=== PATIENT | female | born 1960 | race Caucasian/White ===

== ENCOUNTER 2019-02-09 10:37 | Inpatient (IN) ==
--- NOTE | 2019-01-11 15:45 | PAT Medication Instructions ---
Medication Instructions Date of Service January 11, 2019 Home Medications acetaminophen [Acetaminophen Extra Strength] 1,000 mg PO BID PRN aspirin [Aspirin Low Dose] 81 mg PO HS atenolol 75 mg PO BID ibuprofen 400 mg PO BID PRN rosuvastatin 5 mg PO 3XWK Continue as directed rosuvastatin 5 mg PO 3XWK ASK your surgeon for instructions ibuprofen 400 mg PO BID PRN Take morning of surgery With a small sip of water, OTHERWISE NOTHING TO EAT OR DRINK AFTER MIDNIGHT: acetaminophen [Acetaminophen Extra Strength] 1,000 mg PO BID PRN (okay to take up to 4 hours prior to surgery if needed) atenolol 75 mg PO BID Take evening before surgery acetaminophen [Acetaminophen Extra Strength] 1,000 mg PO BID PRN (if needed) aspirin [Aspirin Low Dose] 81 mg PO HS atenolol 75 mg PO BID Other Notes If you have any questions please call us at [phone] or [phone] or [phone] or [phone]
--- NOTE | 2019-01-12 11:23 | Anesthesiology Consultation ---
Date of Service January 12, 2019 Assessment & Plan (1) Encounter for pre-operative examination: - No previous anesthesia records re: intubation. Chart Review Chart Review: Patient seen in Pre Admission Testing Consults Requested medical (Dr. Joel (01/20)) Patient was seen by PCPs office on 01/24/19 for preoperative evaluation. Per note from that visit, "the patient is cleared for the planned ortho surgery". Also, "she has had no cv symptoms and no events in the past and no pre op cv testing i s indicated." Teaching & Discussion Pre-Anesthesia Teaching/Discussion Notes: Instructed NPO after midnight before surgery, except medications with 15 cc of water. Medication instructions provided according to the PAT guidelines. History Surgery Operation Date: 02/09/19 08:20 Proposed Procedures p Right Total Knee Arthroplasty - Ricky Le DO Height/Weight Height: 5 ft 8 in Weight: 107.3 kg Allergies Allergy/AdvReac Type Severity Reaction Status Date / Time morphine AdvReac Unknown INEFFECTIVE, Verified 01/11/19 13:24 AGITATION Medications Home Medications Medication Instructions Recorded Confirmed Last Taken acetaminophen [Acetaminophen Extra 1,000 mg PO BID PRN 01/11/19 01/11/19 Unknown Strength] aspirin [Aspirin Low Dose] 81 mg PO HS 01/11/19 01/11/19 Unknown atenolol 75 mg PO BID 01/11/19 01/11/19 Unknown ibuprofen 400 mg PO BID PRN 01/11/19 01/11/19 Unknown rosuvastatin 5 mg PO 3XWK 01/11/19 01/11/19 Unknown Past Medical History Medical History H/O thyroid cyst Hyperlipidemia Hypertension Osteoarthritis Exercise / Class Metabolic Activity II 4-5 Yardwork/Stairs/Walk up hill (Can do normal activities, but only for 1 hour before knee is painful. Able to climb stairs. Denies CP of SOB. ) Past Family History Family History Uncle Family history of esophageal cancer Past Surgical History Surgical History History of cardiac cath 2006 NO STENTS History of section X2 History of dilatation and curettage X2 History of hip surgery BILATERAL RESURFACING History of nasal septoplasty History of open reduction and internal fixation (ORIF) procedure LEFT FEMUR, TIBIA OR FIBULA, AND ANKLE History of thyroidectomy, subtotal Past Anesthesia History No Hx of Anesthesia Complications and No Family Hx of Anesthesia Complications History of PONV No Hx of PONV and No Hx of Motion Sickness Social History Smoking Status: Never smoker Do You Dip or Chew Tobacco: No Hx Alcohol Use: No Hx Substance Use: No substance use type: does not use Review of Systems Patient denies chest pain, shortness of breath, dyspnea on exertion, reflux, cough, wheezing, palpitations. +Joint Pain (Both knees) +Heart palpitations (very rare and last ~1 second) Physical Exam Vital Signs BP: 155/87 P: 63 R: 18 T: 98.0 SPO2: 98% on RA Constitutional + obese ENMT Thyromental Distance: > or= 3.5 Finger Breadths (4) Mallampati Class: II Neck normal visual inspection and trachea midline; neck extension not limited Respiratory normal respiratory effort Auscultation: lungs clear to auscultation bilaterally Cardiovascular Rate/Rhythm: regular rate and regular rhythm Heart Sounds: no murmur Vessels: no carotid bruit Neurologic moves all extremities Psychiatric Orientation: alert and oriented x 3 Testing Laboratory Results 01/12/19 11:34 01/12/19 11:34 PT 10.0 Seconds (9.0-12.0) 01/12/19 11:34 INR 1.0 (0.9-1.1) 01/12/19 11:34 APTT 29.3 Seconds (21.0-31.0) 01/12/19 11:34 Hemoglobin A1c 5.6 % (4.5-5.6) 01/12/19 11:34 Urine Color Yellow 01/12/19 Unknown Urine Appearance Clear (Clear) 01/12/19 Unknown Urine pH 6.0 (4.5-7.5) 01/12/19 Unknown Ur Specific [place] 1.019 (1.000-1.030) 01/12/19 Unknown Urine Protein Negative (Negative) 01/12/19 Unknown Urine Glucose (UA) Negative (Negative) 01/12/19 Unknown Urine Ketones Negative (Negative) 01/12/19 Unknown Urine Nitrite Negative (Negative) 01/12/19 Unknown Ur Leukocyte Esterase Negative (Negative) 01/12/19 Unknown Blood Type O Positive 01/12/19 11:34 Antibody Screen NEGATIVE 01/12/19 11:34 01/12/19 Unknown Urine Culture - Final Urine,Clean Catch More than three types of organisms present, all low counts mixed probable skin yoni. No further identifications or sensitivities to follow. Electrocardiogram Date: 01/12/19 Findings: + NSR @ (64) and + no change from (03/06/15) Chest X-Ray Date: 01/12/19 Findings: + NAD
[2019-01-12 12:09] LABS: Basophils # (auto) 0.02 K/uL (0-0.2); Basophils % (auto) 0.4 %; Eosinophils # (auto) 0.12 K/uL (0-0.5); Eosinophils % (auto) 2.5 %; Hemoglobin 13.2 g/dL (12.0-16.0); Lymphocytes % (auto) 33.5 %; Mean Corpuscular Volume 91.1 fL (80-100); Mean Platelet Volume 9.5 fL (7.4-10.4); Monocytes # (auto) 0.32 K/uL (0.11-0.59); Monocytes % (auto) 6.7 %; Neutrophils # (auto) 2.72 K/uL (1.4-6.5); Neutrophils % (auto) 56.9 %; Platelet Count 222 K/uL (130-400); RDW Coefficient of Variation 13.3 % (11.5-14.5); RDW Standard Deviation 44.1 fL (36.4-46.3); Red Blood Count 4.39 M/uL (4.2-5.4); White Blood Count 4.78 K/uL (4.8-10.8)
[2019-01-12 12:11] LABS: Appearance Urine Clear (Clear); Bilirubin Urine Negative (Negative); Blood Urine Negative (Negative); Color Urine Yellow; Glucose Urine UA Negative (Negative); Ketones Urine Negative (Negative); Leukocyte Esterase Urine Negative (Negative); Nitrite Urine Negative (Negative); Protein Urine Negative (Negative); Specific Gravity Urine 1.019 (1.000-1.030); Urobilinogen Urine Negative (Negative)
--- NOTE | 2019-01-12 12:17 | XRay Report ---
TWO VIEW CHEST CLINICAL HISTORY: Preoperative examination. FINDINGS: PA and lateral chest radiographs are compared to study dated 03/06/2015. The cardiomediastina l silhouette is unremarkable. The lungs and pleural spaces are clear. There is no pneumothorax. The skeletal structures are osteopenic. The bony thorax appears intact. IMPRESSION: No active disease in the chest. Electronically signed by: Jeffrey Robertson M.D. 01/12/2019 12:16 PM
[2019-01-12 12:19] LABS: Albumin Level 3.6 gm/dl (3.4-5.0); BUN Creatinine Ratio 25.9 (10-20); Calcium 8.9 mg/dl (8.5-10.1); Creatinine Clr Calc Pharmacy 123.8 ml/min; Est GFR (African American) 113.6; Potassium 4.4 mmol/L (3.5-5.1)
[2019-01-12 12:25] LABS: Partial Thromboplastin Ratio 1.1; Partial Thromboplastin Time 29.3 Seconds (21.0-31.0)
[2019-01-12 12:50] LABS: Estimated Average Glucose 114 mg/dl; Hemoglobin A1C 5.6 % (4.5-5.6)
--- NOTE | 2019-01-12 14:02 | History & Physical Report ---
Date of Service January 12, 2019 date of surgery: 02-09-19 Assessment & Plan (1) Tricompartment osteoarthritis of right knee: Risks and benefits of procedure discussed in detail today, patient would like to proceed with a Right total knee replacement at [facility] as scheduled. will obtain PATs at [facility]. Will place on ASA 81mg po bid x 1 month post op, f/u 2 weeks post op for routine post-operative care and x-ray, sooner if having any problems. will make arrangements for HHPT at the time of discharge. At this point in time, has failed conservative measures and would like to proceed with surgical intervention. History of Present Illness Chief Complaint: right knee pain Primary Care Provider: Marcio Joel Ms Valente is a 58 year old female who complains of right knee pain, presents for pre-op evaluation prior to a right total knee replacement at [facility] by Dr Le. She presents with pain and decreased range of motion on the right side. She states that the symptoms have been chronic non-traumatic and is constant. Currently the patient states that the symptoms are moderate. The pain is described as aching, sharp and throbbing. She rates her current pain as 3/10 and worst is 6/10. The symptoms are aggravated by daily activities, exercise and walking. Yolanda states that the symptoms are relieved by no specific treatment, has tried prior NSAIDs as well as visco injections. at this point has failed conservative measures and would like to proceed with a Right TKA. Allergies Allergy/AdvReac Type Severity Reaction Status Date / Time morphine AdvReac Unknown INEFFECTIVE, Verified 01/11/19 13:24 AGITATION Home Medications Home Medications Medication Instructions Recorded Confirmed Type acetaminophen [Acetaminophen Extra 1,000 mg PO BID PRN 01/11/19 01/11/19 History Strength] aspirin [Aspirin Low Dose] 81 mg PO HS 01/11/19 01/11/19 History atenolol 75 mg PO BID 01/11/19 01/11/19 History ibuprofen 400 mg PO BID PRN 01/11/19 01/11/19 History rosuvastatin 5 mg PO 3XWK 01/11/19 01/11/19 History Past Med/Surg History Medical History H/O thyroid cyst Hyperlipidemia Hypertension Osteoarthritis Surgical History History of cardiac cath 2006 NO STENTS History of section X2 History of dilatation and curettage X2 History of hip surgery BILATERAL RESURFACING History of nasal septoplasty History of open reduction and internal fixation (ORIF) procedure LEFT FEMUR, TIBIA OR FIBULA, AND ANKLE History of thyroidectomy, subtotal Family History Uncle Family history of esophageal cancer Social History Preferred Language: Somali Communication Ability: Effective 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 Beliefs That Will Affect Care: None Current Living Situation: Spouse and Family Other Information That Helps Us Care for You: No Feels Safe at Home: Yes Safety Concerns: Feels Safe At This Time Smoking Status: Never smoker Do You Dip or Chew Tobacco: No Second Hand Exposure: No Tobacco Cessation Education Requested by Patient: No Hx Alcohol Use: No Hx Substance Use: No Review of Systems Review of Systems: All systems reviewed & are unremarkable except as noted in HPI & below Constitutional: no fever, no chills and no sweats Respiratory: no cough and no dyspnea Cardiovascular: no chest pain, no dyspnea and no orthopnea Gastrointestinal: no abdominal pain, no nausea and no vomiting Musculoskeletal: as per Subjective / HPI Physical Exam Physical Exam: Ht: 5ft 8in Wt: 107.3kg BP: 128/82 Pulse: 72 Constitutional: WD/WN, vitals as above no acute distress Respiratory: normal respiratory effort, lungs clear to auscultation no labored breathing and does not use accessory muscles Cardiovascular: RRR, no murmur, no edema Gastrointestinal (Abdomen): normal bowel sounds, soft, nontender, no hepatosplenomegaly Musculoskeletal: Right Knee Exam: She ambulates with a limp and uses a cane, there is no atrophy, erythema or ecchymosis, mild effusion, diffuse tenderness to the knee, positive crepitation with motion, colt's negative, pain with flexion circumduction, anterior drawer negative, valgus stress negative, varus stress negative, no extensor lag, pain with active range of motion, Range of motion 0/3/110. No pain with active/passive ROM of ankle. Lower extremity strength normal. Lower extremity neuro-vascular is normal Results & Data Diagnostic Findings Right Knee X-ray: confirm advanced degenerative changes to the right knee, narrowing of all three compartments, showing osteophyte formation and subchondral sclerosis noted. standing leg length shows significant valgus deformity. no acute bony pathology noted.
[~2019-02-09 10:37] MED LIST: ACETAMINOPHEN 500 MG TAB PO SCH; BUPIVACAINE 0.5 % 5 MG/1 ML PF 10ML VIAL ONE; CEFAZOLIN 2000MG 2,000 MG/15 ML SYR IV SCH; CeleBREX 200 MG CAP PO SCH; EPINEPHrine INJ 1 MG/ML AMP ONE; FAMOTIDINE 20 MG TAB PO SCH; GABAPENTIN 600 MG DOSE PO SCH; LR 500ML BOLUS, THEN 15ML/HR IV SCH; METOCLOPRAMIDE HCL 10 MG TABLET PO SCH; ROPIVACAINE 0.5% 5 MG/ML 30 ML VIAL ONE; ROPIVACAINE 0.5% HCL/PF 150 MG, BUPIVACAINE 0.5% MPF 30 ML, EPINEPHrine 30MG/30ML (OR U... INSTIL SCH; TRANEXAMIC ACID 1,000 MG **IV Intra-op IV SCH; TRANEXAMIC ACID 1,000 MG **IV Pre-op IV SCH; dexAMETHasone 4 MG TAB PO SCH
[2019-02-09] MEDS ORDERED: LIDOCAINE HCL 2% 2 ML VIAL/AMP(20MG/ML) INFIL ONE (11:29)
[2019-02-09] MEDS ORDERED: PROPOFOL IV EMULSION 10 MG/ML 20 ML VIAL IV ONE ×3 (11:29→14:24)
[2019-02-09] MEDS ORDERED: fentaNYL citrate 100 MCG/2 ML VIAL ONE (11:30)
[2019-02-09] MEDS ORDERED: MIDAZOLAM HCL 1 MG/ML 2ML VIAL ONE (11:30)
[2019-02-09] MEDS ORDERED: PHENYLEPHRINE 100MCG/ML 5ML SYR IV PRN (12:04)
[2019-02-09] MEDS ORDERED: HYDROmorphone INJ 1 MG/ML SYRINGE IV PRN (12:04)
[2019-02-09] MEDS ORDERED: ATROPINE SULFATE 0.1 MG/ML 10ML SYR IV PRN (12:04)
[2019-02-09] MEDS ORDERED: LABETALOL HCL IV 5 MG/ML 20ML IV PRN (12:04)
[2019-02-09] MEDS ORDERED: ePHEDrine sulfate 50 MG/ML AMP IV PRN (12:04)
[2019-02-09] MEDS ORDERED: fentaNYL citrate 100 MCG/2 ML VIAL IV PRN (12:04)
[2019-02-09] MEDS ORDERED: ONDANSETRON INJ 2 MG/ML 2 ML VIAL IV PRN ×2 (12:04→16:35)
--- NOTE | 2019-02-09 12:07 | History & Physical Bridge Note ---
Date of Service February 09, 2019 History & Physical Bridge Note I have examined the patient, reviewed the History & Physical and in the interval since the performance of the History & Physical I have noted the following changes of clinical significance: no changes noted
[2019-02-09] MEDS ORDERED: ORTHO JOINT ANESTHETIC ONE (12:39)
[2019-02-09] MEDS ORDERED: BACITRACIN INJ 50,000 UNIT VIAL ONE (12:39)
--- NOTE | 2019-02-09 14:27 | Operative Report ---
Post Operative Report Pre & Post Diagnosis Operation Date: 02/09/19 13:40 Pre-Op Diagnosis: RIGHT KNEE OSTEOARTHRITIS Post-Op Diagnosis: RIGHT KNEE OSTEOARTHRITIS Procedure Operation Date: 02/09/19 13:40 Actual Procedures p Right Total Knee Arthroplasty(Right) utilizing [employer] size 5 femur 4 tibia 15 constrained poly-29 oval patella- Ricky Le DO Surgeon Ricky Le DO Pickling Grader Panda Ron Estimated Blood Loss 5 Findings Consistent with Post-Op Diagnosis Patient presents with 21 degree valgus right knee severe end-stage DJD hyperplasia of the lateral femoral condyle bone to bone eburnated bone subchondral cystic changes marginal osteophytes 21 degree valgus alignment preoperatively of the right knee with complete eburnation of bone and lateral patellofemoral compartment Specimens Bone cartilage Drains Medium bore Hemovac Complications none Disposition Accompanied Patient To Recovery: No Disposition: Recovery Room Indications Patient presents with severe end-stage tricompartmental degenerative joint disease of right knee she is failed attempted conservative management including physical therapy anti-inflammatories relative rest activity modification corticosteroid injections Visco supplementation presents with the above intraoperative findings noted Description of Procedure After proper prepping and draping of the Right lower extremity anterior midline incision was made over the region of the extensor extensor mechanism after meticulous hemostasis was obtained and maintained in subcutaneous tissues a medial parapatellar incision was made The patella was subluxed lateralward the medial lateral gutter were cleaned from any hypertrophic synovitis and scar tissue of the distal femoral block was placed and the distal femoral osteotomy cut was made subsequently the chamfers anterior and posterior osteotomy cuts were made utilizing the 4-in-1 block the tibia was subsequently subluxed anteriorward medial and ateral meniscal remnants were excised in their entirety remnants of the anterior and posterior cruciate ligaments were excised in their entirety excellent exposure of the proximal tibia was obtained the tibial osteotomy guide was placed on the proximal tibial osteotomy cut was made once again the knee was irrigated with copious amounts of sterile saline solution the patella was subsequently everted lateralward thickened scar tissue around the patella was removed the patella was subsequently cut utilizing a freehand technique and was drilled prepared for final preparation and placement of patella socially flexion-extension gaps were checked and the equal and symmetric trials were placed to the appropriate femoral and tibial trials with poly-spacer being placed for equal flexion and extension gaps and full range of motion including extension to 0 and flexion to 140 the trial components after having been taken to recovery range of motion was subsequently removed meticulous hemostasis was obtained and maintained subsequently a knee block injection of joint cocktail including ropivacaine 0.5% 150 mg. Bupivacaine 0.5% epinephrine 1-200,030 mL's toradol 30 mg dexamethasone 4 mg ketamine 10 mg clonidine 100 micrograms normal saline solution 30 mg was infiltrated into the soft tissues of the posterior knee medial lateral gutters and periosteal synovium special attention was paid to protect neurovascular structures at all times subsequently trial components having been removed the knee was irrigated with sterile saline solution. debris was removed the proximal tibia was subsequently prepared and was made ready for the placement of the tibial component tibial component was also cemented and tamped into position the femoral component was subsequently placed and cemented in the position the patellar component was subsequently cemented in position because hemostasis once again obtained and maintained wound having been thoroughly irrigated with debridement and debridement lavage was performed as well as a medial parapatellar incision closed with #1 Vicryl in interrupted fashion subcutaneous was closed with #2 Vicryl skin was closed with skin clips. PA-C was necessary for prepping and drapping as well as wound closure of deep fascia Sub cutaneous tissue and skin and was necessary for the case. A sterile compressive dressing was placed patient was taken to recovery in stable condition of report dictated by Rey I attest to the content of the Intraoperative Record and any orders documented therein. Any exceptions are noted below. I attest to the content of the Intraoperative Record and any orders documented therein. Any exceptions are noted below.
--- NOTE | 2019-02-09 15:38 | XRay Report ---
XR knee RT 2V routine CLINICAL HISTORY: Surgical Post Op COMPARISON: None FINDINGS: Alignment of the right knee arthroplasty is anatomic. Skin barak and drains are present. There is no fracture or unexpected radiopaque foreign body. IMPRESSION: Expected findings following total right knee arthroplasty. Electronically signed by: Harrison Puga M.D. 02/09/2019 3:37 PM
--- NOTE | 2019-02-09 15:41 | Anesthesiology Progress Note ---
Date of Service February 09, 2019 Anesthesia Post Procedure Vital Signs Vital Signs: Temp Pulse Pulse Resp BP Pulse Ox 02/09/19 15:15 79 12 138/82 100 02/09/19 15:09 37.0 C 82 13 134/85 100 02/09/19 11:12 36.9 C 71 18 182/102 H 96 Pain Intensity Right Knee: Pain Intensity: 0 Left Leg: Pain Intensity: 3 Transfer of Care Handoff Completed per policy Notes Mental Status: alert / awake / arousable Patient Amnestic to Procedure: Yes Nausea / Vomiting: adequately controlled Pain: adequately controlled Airway Patency, RR, SpO2: stable & adequate BP & HR: stable & adequate Hydration State: stable & adequate Neuraxial Anesthesia: was administered and sensory block is resolving Anesthetic Complications: no major complications apparent and Pt Satisfied with anesthetic care
[2019-02-09] MEDS ORDERED: SODIUM CHLORIDE 0.9% 1000ML 1,000 ML IV SCH (16:35)
[2019-02-09] MEDS ORDERED: NALOXONE HCL 0.4 MG/1 ML VIAL/CARP IV PRN (16:35)
[2019-02-09] MEDS ORDERED: BISACODYL 10 MG SUPP PR PRN (16:35)
[2019-02-09] MEDS ORDERED: HYDROmorphone INJ 0.5 MG/0.5 ML SYR IV PRN (16:35)
[2019-02-09] MEDS ORDERED: MAGNESIUM HYDROXIDE SUSP 30 ML UDC PO PRN (16:35)
[2019-02-09] MEDS: DOCUSATE SODIUM 100 MG CAP PO SCH (20:01)
[2019-02-09] MEDS: SENNA 8.6 MG TAB PO SCH (20:01)
[2019-02-09] MEDS: ASPIRIN 81 MG ECTAB PO SCH (20:02)
[2019-02-09] MEDS: ATENOLOL 25 MG TABLET PO SCH (20:03)
[2019-02-09] MEDS: CEFAZOLIN 2000MG 2,000 MG/15 ML SYR IV SCH (20:15)
[2019-02-09] MEDS ORDERED: ROSUVASTATIN CALCIUM 5 MG TAB PO SCH (21:00)
[2019-02-09] MEDS: ACETAMINOPHEN 500 MG TAB PO SCH (21:53)
[2019-02-09] MEDS: OXYCODONE HCL IR 5 MG TAB (IMMEDIATE RELEASE) PO PRN (21:57)
[2019-02-10] MEDS: CEFAZOLIN 2000MG 2,000 MG/15 ML SYR IV SCH (05:46)
[2019-02-10] MEDS: ACETAMINOPHEN 500 MG TAB PO SCH ×3 (06:18→22:01)
--- NOTE | 2019-02-10 07:34 | Orthopedic Progress Note ---
Date of Service February 10, 2019 Assessment & Plan (1) Status post total right knee replacement: POD #1 s/p Right TKA pt/ot dvt proph with ROMERO/SCD/ASA 81mg bid plan for d/c home with OPPT, when stable. will recheck after PT today Subjective POD #1 s/p Right TKA Review of Systems Constitutional: no fever, no chills and no sweats Respiratory: no cough and no dyspnea Cardiovascular: no chest pain and no dyspnea Gastrointestinal: no abdominal pain, no nausea and no vomiting Physical Exam Physical Exam: Vital Signs Temp 36.7 C 02/10/19 03:05 Pulse 75 02/10/19 03:05 Resp 16 02/10/19 03:05 BP 150/84 H 02/10/19 03:05 Pulse Ox 94 02/10/19 03:05 Intake & Output 02/09/19 02/10/19 02/10/19 18:59 06:59 18:59 Intake Total 1820 / 1820 Output Total 15 / 1340 1325 / 1340 Balance 1805 / 480 -1325 / 480 Weight 105.46 kg Intake: IV 720 / 720 Lr 1,000 ml @ 15 mls/hr IV . 500 / 500 Q24H [facility] Rx#:[id number] Cyklokapron 1, 000 mg In Sodium 110 / 110 Chloride 100 m l @ 660 mls/hr IV TODAY@0600 [facility] Rx#:[id number] IV Perioperative 1100 / 1100 Output: Urine 1025 / 1025 Estimated Blood Loss 5 / 5 Drain Output 10 / 310 300 / 310 Right Knee 10 / 310 300 / 310 Constitutional: WD/WN, vitals as above no acute distress Musculoskeletal: Right Leg: NVDI, calf SNT, negative neris sign. DP palpable, able to wiggle toes/ankle movement without difficulty. dressing clean dry and intact. Results & Data Vital Signs (Past 12 Hours) Vital Signs Temp Pulse Resp BP Pulse Ox 02/10/19 03:05 36.7 C 75 16 150/84 H 94 02/09/19 23:40 36.9 C 71 16 139/81 92 02/09/19 19:56 36.9 C 82 12 144/83 H 97 Laboratory Results labs pending Diagnostic Findings XR knee RT 2V routine CLINICAL HISTORY: Surgical Post Op COMPARISON: None FINDINGS: Alignment of the right knee arthroplasty is anatomic. Skin barak and drains are present. There is no fracture or unexpected radiopaque foreign body. IMPRESSION: Expected findings following total right knee arthroplasty.
[2019-02-10 08:01] LABS: Hematocrit (blood only) 34.2 % (37-47); Hemoglobin 11.4 g/dL (12.0-16.0); Mean Corpuscular Hgb Conc 33.3 g/dL (32-36); Mean Corpuscular Volume 90.2 fL (80-100); Mean Platelet Volume 9.7 fL (7.4-10.4); Platelet Count 214 K/uL (130-400); RDW Coefficient of Variation 13.2 % (11.5-14.5); RDW Standard Deviation 43.5 fL (36.4-46.3); Red Blood Count 3.79 M/uL (4.2-5.4); White Blood Count 10.77 K/uL (4.8-10.8)
[2019-02-10 08:34] LABS: BUN Creatinine Ratio 28.1 (10-20); Calcium 8.8 mg/dl (8.5-10.1); Est GFR (African American) 111.8; Est GFR (Non-African American) 96.5
[2019-02-10] MEDS: OXYCODONE HCL IR 5 MG TAB (IMMEDIATE RELEASE) PO PRN ×3 (08:38→18:35)
[2019-02-10] MEDS: ATENOLOL 25 MG TABLET PO SCH ×2 (08:39→20:13)
[2019-02-10] MEDS: MULTIVITAMIN TAB PO SCH (08:39)
[2019-02-10] MEDS: ASPIRIN 81 MG ECTAB PO SCH ×2 (08:39→20:13)
[2019-02-10] MEDS: DOCUSATE SODIUM 100 MG CAP PO SCH ×2 (08:40→20:13)
--- NOTE | 2019-02-10 09:35 | Anesthesiology Progress Note ---
Date of Service February 10, 2019 Anesthesia Post Procedure Vital Signs Vital Signs: Temp Pulse Pulse Resp BP Pulse Ox 02/10/19 07:38 36.6 C 63 16 157/82 H 97 02/10/19 03:05 36.7 C 75 16 150/84 H 94 02/09/19 23:40 36.9 C 71 16 139/81 92 02/09/19 19:56 36.9 C 82 12 144/83 H 97 02/09/19 18:36 36.8 C 84 17 146/89 H 97 02/09/19 17:38 36.8 C 77 17 131/85 95 02/09/19 17:08 143/87 H 02/09/19 17:07 36.5 C 74 12 150/90 H 95 02/09/19 16:35 36.7 C 73 18 143/83 H 96 02/09/19 16:05 74 15 133/86 95 02/09/19 15:55 76 14 152/84 H 95 02/09/19 15:45 37.0 C 74 15 146/88 H 95 02/09/19 15:35 79 15 144/87 H 96 02/09/19 15:25 75 12 138/85 98 02/09/19 15:15 79 12 138/82 100 02/09/19 15:09 37.0 C 82 13 134/85 100 02/09/19 11:12 36.9 C 71 18 182/102 H 96 Pain Intensity Right Knee: Pain Intensity: 0 Left Leg: Pain Intensity: 3 Notes Mental Status: alert / awake / arousable and participated in evaluation Patient Amnestic to Procedure: Yes Nausea / Vomiting: adequately controlled Pain: adequately controlled Airway Patency, RR, SpO2: stable & adequate BP & HR: stable & adequate Hydration State: stable & adequate Neuraxial Anesthesia: was administered and sensory block resolved Anesthetic Complications: no major complications apparent and Pt Satisfied with anesthetic care
[2019-02-10] MEDS: SENNA 8.6 MG TAB PO SCH (20:13)
[2019-02-11] MEDS: ACETAMINOPHEN 500 MG TAB PO SCH (05:42)
--- NOTE | 2019-02-11 07:15 | Orthopedic Progress Note ---
Date of Service February 11, 2019 Assessment & Plan (1) Status post total right knee replacement: POD #2 s/p Right TKA pt/ot dvt proph with ROMERO/SCD/ASA 81mg bid plan for d/c home with OPPT, likely after PT today Prevena x 7 days Subjective POD #2 s/p Right TKA Review of Systems Constitutional: no fever, no chills and no sweats Respiratory: no cough and no dyspnea Cardiovascular: no chest pain and no dyspnea Gastrointestinal: no abdominal pain, no nausea and no vomiting Physical Exam Physical Exam: Vital Signs Temp Pulse Pulse Pulse Resp BP Pulse Ox 02/11/19 07:00 37 C 71 16 131/85 98 02/10/19 22:59 37.1 C 69 16 157/89 H 98 02/10/19 20:12 74 134/84 02/10/19 15:35 37.0 C 66 17 149/85 H 95 02/10/19 12:41 36.8 C 73 16 129/81 97 02/10/19 10:24 36.6 C 74 63 16 157/82 H 97 02/10/19 07:38 36.6 C 63 16 157/82 H 97 Intake and Output 02/10/19 02/11/19 02/11/19 22:59 06:59 14:59 Intake Total 250 / 780 150 / 780 Output Total 100 / 325 50 / 325 Balance 150 / 455 100 / 455 Intake: Oral 250 / 780 150 / 780 Output: Drain Output 100 / 325 50 / 325 Right Knee 100 / 325 50 / 325 Other: # Unmeasured Voi ds 1 1 Constitutional: WD/WN, vitals as above no acute distress Musculoskeletal: Right Knee: NVDI, calf SNT, negative neris sign. DP palpable, able to wiggle toes/ankle movement without difficulty. Prevena dressing clean dry and intact. expected post-operative bruising noted. Results & Data Vital Signs (Past 12 Hours) Vital Signs Temp Pulse Pulse Resp BP Pulse Ox 02/11/19 07:00 37 C 71 16 131/85 98 02/10/19 22:59 37.1 C 69 16 157/89 H 98 02/10/19 20:12 74 134/84 Laboratory Results Laboratory Results WBC 10.77 K/uL (4.8-10.8) 02/10/19 07:07 RBC 3.79 M/uL (4.2-5.4) L 02/10/19 07:07 Hgb 11.4 g/dL (12.0-16.0) L 02/10/19 07:07 Hct 34.2 % (37-47) L 02/10/19 07:07 MCV 90.2 fL (80-100) 02/10/19 07:07 MCH 30.1 pg (25-34) 02/10/19 07:07 MCHC 33.3 g/dL (32-36) 02/10/19 07:07 RDW Std Deviation 43.5 fL (36.4-46.3) 02/10/19 07:07 RDW Coeff of Yuki 13.2 % (11.5-14.5) 02/10/19 07:07 Plt Count 214 K/uL (130-400) 02/10/19 07:07 MPV 9.7 fL (7.4-10.4) 02/10/19 07:07 Immature Gran % (Auto) 0.0 % 01/12/19 11:34 Neut % (Auto) 56.9 % 01/12/19 11:34 Lymph % (Auto) 33.5 % 01/12/19 11:34 [place] % (Auto) 6.7 % 01/12/19 11:34 Eos % (Auto) 2.5 % 01/12/19 11:34 Baso % (Auto) 0.4 % 01/12/19 11:34 Immature Gran # (Auto) 0.00 K/uL (0.00-0.02) 01/12/19 11:34 Neut # (Auto) 2.72 K/uL (1.4-6.5) 01/12/19 11:34 Lymph # (Auto) 1.60 K/uL (1.2-3.4) 01/12/19 11:34 [place] # (Auto) 0.32 K/uL (0.11-0.59) 01/12/19 11:34 Eos # (Auto) 0.12 K/uL (0-0.5) 01/12/19 11:34 Baso # (Auto) 0.02 K/uL (0-0.2) 01/12/19 11:34 PT 10.0 Seconds (9.0-12.0) 01/12/19 11:34 INR 1.0 (0.9-1.1) 01/12/19 11:34 APTT 29.3 Seconds (21.0-31.0) 01/12/19 11:34 PTT Ratio 1.1 01/12/19 11:34 Sodium 141 mmol/L (136-145) 02/10/19 07:07 Potassium 4.0 mmol/L (3.5-5.1) 02/10/19 07:07 Chloride 108 mmol/L (98-107) H 02/10/19 07:07 Carbon Dioxide 26 mmol/L (21-32) 02/10/19 07:07 Anion Gap 7.0 (3-11) 02/10/19 07:07 BUN 18 mg/dl (7-18) 02/10/19 07:07 Creatinine 0.65 mg/dl (0.6-1.2) 02/10/19 07:07 Est Cr Clr Drug Dosing 117.0 ml/min 02/10/19 07:07 Est GFR ( Amer) 111.8 02/10/19 07:07 Est GFR (Non-Af Amer) 96.5 02/10/19 07:07 BUN/Creatinine Ratio 28.1 (10-20) H 02/10/19 07:07 Glucose 118 mg/dl (70-99) H 02/10/19 07:07 Estimat Average Glucose 114 mg/dl 01/12/19 11:34 Hemoglobin A1c 5.6 % (4.5-5.6) 01/12/19 11:34 Calcium 8.8 mg/dl (8.5-10.1) 02/10/19 07:07 Albumin 3.6 gm/dl (3.4-5.0) 01/12/19 11:34 Urine Color Yellow 01/12/19 Unknown Urine Appearance Clear (Clear) 01/12/19 Unknown Urine pH 6.0 (4.5-7.5) 01/12/19 Unknown Ur Specific [place] 1.019 (1.000-1.030) 01/12/19 Unknown Urine Protein Negative (Negative) 01/12/19 Unknown Urine Glucose (UA) Negative (Negative) 01/12/19 Unknown Urine Ketones Negative (Negative) 01/12/19 Unknown Urine Blood Negative (Negative) 01/12/19 Unknown Urine Nitrite Negative (Negative) 01/12/19 Unknown Urine Bilirubin Negative (Negative) 01/12/19 Unknown Urine Urobilinogen Negative (Negative) 01/12/19 Unknown Ur Leukocyte Esterase Negative (Negative) 01/12/19 Unknown Hepatitis C Ab Screen Neg (Neg) 02/09/19 11:22 Blood Type O Positive 01/12/19 11:34 Antibody Screen NEGATIVE 01/12/19 11:34
[2019-02-11] MEDS: OXYCODONE HCL IR 5 MG TAB (IMMEDIATE RELEASE) PO PRN (07:37)
[2019-02-11] MEDS: MULTIVITAMIN TAB PO SCH (07:38)
[2019-02-11] MEDS: DOCUSATE SODIUM 100 MG CAP PO SCH (07:38)
[2019-02-11] MEDS: ATENOLOL 25 MG TABLET PO SCH (07:38)
[2019-02-11] MEDS: ASPIRIN 81 MG ECTAB PO SCH (07:38)
[2019-02-11] MEDS ORDERED: CeleBREX 200 MG CAP PO SCH (09:00)
--- NOTE | 2019-02-14 22:58 | Discharge Summary ---
DISCHARGE DIAGNOSIS: Degenerative joint disease, right knee. SECONDARY DIAGNOSES: Hyperlipidemia, hypertension, osteoarthritis. CONSULTS: None. COMPLICATIONS: None. PROCEDURES: Right total knee arthroplasty performed by Dr. Le on 02/09/2019. BRIEF HISTORY: As dictated in history and physical. HOSPITAL SUMMARY: The patient was admitted on the above-noted date and had the above-noted surgery performed, which she tolerated well. On first postoperative day, she had no complaints and was comfortable. Pain was controlled. Vital signs were stable and she was afebrile and hemoglobin was 11.4. She was started on physical therapy protocol and continued on DVT prophylaxis and pain management. Plans were for possible discharge; however, she continued to have Hemovac drainage of 150 mL since that morning and plans were to continue to drain and continue her PT protocol. By her second postoperative day, she continued to remain stable without any complaints. Pain was controlled. Vital signs were stable. She was afebrile. Hemovac had been removed. Her right knee showed calves soft, nontender, neurovascularly intact. Prevena dressing was clean, dry and intact and she was progressing with her physical therapy and it was felt that she could be discharged to home. For further review, please see chart. LABORATORY AND X-RAY DATA: As per chart. DISCHARGE INSTRUCTIONS: The patient was discharged to home in satisfactory condition on 02/11/2019. DIET: Regular. ACTIVITY: Weightbearing as tolerated on the affected extremity with a walker. Follow TK instruction sheets and special care instructions as noted. Follow up with Dr. Le in 2 weeks. The patient to call for appointment if one has not been made for you. DISCHARGE MEDICATIONS: Acetaminophen 1000 mg p.o. q. 8 hours, aspirin 81 mg p.o. b.i.d., cefadroxil 500 mg p.o. b.i.d., Celebrex 200 mg p.o. b.i.d., oxycodone 5 mg p.o. q. 6 hours, sennosides 17.2 mg p.o. at bedtime. Resume home meds as listed and stop taking previous aspirin and acetaminophen dosages and stop taking ibuprofen.
== END 2019-02-11 10:48 | disposition home or self-care (01) | DRG 470 ==
LOC: ASU 10:37 → 3E 15:16

== ENCOUNTER 2019-04-12 07:39 | Inpatient (IN) ==
[2019-03-21 10:16] LABS: Basophils # (auto) 0.05 K/uL (0-0.2); Basophils % (auto) 1.4 %; Eosinophils % (auto) 2.8 %; Hematocrit (blood only) 37.8 % (37-47); Hemoglobin 12.1 g/dL (12.0-16.0); Lymphocytes # (auto) 1.23 K/uL (1.2-3.4); Lymphocytes % (auto) 34.8 %; Mean Corpuscular Hemoglobin 29.5 pg (25-34); Mean Corpuscular Volume 92.2 fL (80-100); Mean Platelet Volume 9.8 fL (7.4-10.4); Monocytes # (auto) 0.34 K/uL (0.11-0.59); Monocytes % (auto) 9.6 %; Neutrophils # (auto) 1.81 K/uL (1.4-6.5); Neutrophils % (auto) 51.4 %; Platelet Count 197 K/uL (130-400); RDW Coefficient of Variation 13.9 % (11.5-14.5); RDW Standard Deviation 46.5 fL (36.4-46.3); White Blood Count 3.53 K/uL (4.8-10.8)
[2019-03-21 10:31] LABS: Prothrombin Time 10.1 Seconds (9.0-12.0)
[2019-03-21 10:44] LABS: Blood Urea Nitrogen 17 mg/dl (7-18); Carbon Dioxide 29 mmol/L (21-32); Chloride 107 mmol/L (98-107); Est GFR (African American) 110.7; Est GFR (Non-African American) 95.5; Glucose 80 mg/dl (70-99); Potassium 4.5 mmol/L (3.5-5.1); Sodium 141 mmol/L (136-145)
[2019-03-21 12:31] LABS: Appearance Urine Clear (Clear); Blood Urine Negative (Negative); Color Urine Dark Yellow; Glucose Urine UA Negative (Negative); Ketones Urine Trace (Negative); Leukocyte Esterase Urine Negative (Negative); Nitrite Urine Negative (Negative); Protein Urine Negative (Negative); Urobilinogen Urine Negative (Negative)
[2019-03-21 12:48] LABS: Bilirubin Urine Negative (Negative); Ictotest Urine Negative (Negative)
--- NOTE | 2019-03-30 10:19 | Anesthesiology Consultation ---
Date of Service March 30, 2019 Assessment & Plan (1) Encounter for pre-operative examination: Chart Review Chart Review: Acceptable Risk for Surgery and Patient NOT seen in Pre Admission Testing Consults Requested none History Surgery Operation Date: 04/12/19 13:20 Proposed Procedures p Left Total Knee Arthroplasty - Ricky Le DO Height/Weight Height: 5 ft 8 in Weight: 102.058 kg Allergies Allergy/AdvReac Type Severity Reaction Status Date / Time morphine AdvReac Mild INEFFECTIVE, Verified 03/29/19 14:37 AGITATION Medications Home Medications Medication Instructions Recorded Confirmed Last Taken atenolol 75 mg PO BID 01/11/19 03/29/19 02/09/19 07:00 rosuvastatin 5 mg PO 3XWK 01/11/19 03/29/19 02/07/19 22:00 sennosides [Senokot] 17.2 mg PO HS #30 tab 02/10/19 03/29/19 Unknown celecoxib [Celebrex] 200 mg PO QAM 03/29/19 03/29/19 Unknown Past Medical History Medical History H/O thyroid cyst Hyperlipidemia Hypertension Osteoarthritis Past Family History Family History Uncle Family history of esophageal cancer Past Surgical History Surgical History History of cardiac cath 2006 NO STENTS History of section X2 History of dilatation and curettage X2 History of hip surgery BILATERAL RESURFACING History of nasal septoplasty History of open reduction and internal fixation (ORIF) procedure LEFT FEMUR, TIBIA OR FIBULA, AND ANKLE History of right knee joint replacement 02/09/2019 [facility]. SAB with adductor canal and sedation. No issues. History of thyroidectomy, subtotal Social History Smoking Status: Never smoker Do You Dip or Chew Tobacco: No Hx Alcohol Use: No Hx Substance Use: No substance use type: does not use Testing Laboratory Results 03/21/19 09:46 03/21/19 09:46 PT 10.1 Seconds (9.0-12.0) 03/21/19 09:46 INR 1.0 (0.9-1.1) 03/21/19 09:46 Urine Color Dark Yellow 03/21/19 09:53 Urine Appearance Clear (Clear) 03/21/19 09:53 Urine pH 5.0 (4.5-7.5) 03/21/19 09:53 Ur Specific [place] 1.030 (1.000-1.030) 03/21/19 09:53 Urine Protein Negative (Negative) 03/21/19 09:53 Urine Glucose (UA) Negative (Negative) 03/21/19 09:53 Urine Ketones Trace (Negative) H 03/21/19 09:53 Urine Nitrite Negative (Negative) 03/21/19 09:53 Ur Leukocyte Esterase Negative (Negative) 03/21/19 09:53 Blood Type O Positive 03/21/19 09:47 Antibody Screen NEGATIVE 03/21/19 09:47 Electrocardiogram Date: 01/12/19 Findings: + NSR @ (64) Normal ECG. Chest X-Ray Date: 01/12/19 TWO VIEW CHEST CLINICAL HISTORY: Preoperative examination. FINDINGS: PA and lateral chest radiographs are compared to study dated 03/06/2015. The cardiomediastinal silhouette is unremarkable. The lungs and pleural spaces are clear. There is no pneumothorax. The skeletal structures are osteopenic. The bony thorax appears intact. IMPRESSION: No active disease in the chest.
--- NOTE | 2019-04-09 20:27 | History & Physical Report ---
Date of Service April 09, 2019 date of surgery: 04/12/19 Assessment & Plan (1) Osteoarthritis of left knee: Further care discussed with Yolanda and at this point in time has failed conservative measures and would like to proceed with a left total knee replacement. Plan on discharge will be home with home health physical therapy. DVT prophalaxis with TEDs, SCDs and will also place on aspirin 81 mg p.o. b.i.d. for a month postop. Patient will have follow up appointment in our office two weeks post op for staple/suture removal and re-evaluation. Patient otherwise has no other questions or concerns. History of Present Illness Chief Complaint: left knee pain Primary Care Provider: Marcio Guerrero is a 58 year old female who complains of left knee pain, presents for pre- op evaluation prior to a left total knee replacement by dr Le at [facility]. She complains of pain, crepitus, decreased range of motion, instability and stiffness in the left knee. Yolanda states that the symptoms have been chronic and non-traumatic. she states that the symptoms occur constantly with intermittent worsening. Currently the patient states that the symptoms are moderate-severe. The pain is described as aching, sharp and throbbing. The symptoms occur continuously. The symptoms are aggravated by ascending stairs, daily activities, first steps while awake walking. Prior NSAIDs include Aleve, she has also taken Tylenol with not much relief. She has been treated with previous viscosupplementation injections in the past without much relief. she had prior Right TKA and has recovered well. Allergies Allergy/AdvReac Type Severity Reaction Status Date / Time morphine AdvReac Mild INEFFECTIVE, Verified 03/29/19 14:37 AGITATION Home Medications Home Medications Medication Instructions Recorded Confirmed Type atenolol 75 mg PO BID 01/11/19 03/29/19 History rosuvastatin 5 mg PO 3XWK 01/11/19 03/29/19 History sennosides [Senokot] 17.2 mg PO HS #30 tab 02/10/19 03/29/19 Rx celecoxib [Celebrex] 200 mg PO QAM 03/29/19 03/29/19 History Past Med/Surg History Medical History H/O thyroid cyst Hyperlipidemia Hypertension Osteoarthritis Surgical History History of cardiac cath 2006 NO STENTS History of section X2 History of dilatation and curettage X2 History of hip surgery BILATERAL RESURFACING History of nasal septoplasty History of open reduction and internal fixation (ORIF) procedure LEFT FEMUR, TIBIA OR FIBULA, AND ANKLE History of right knee joint replacement 02/09/2019 [facility]. SAB with adductor canal and sedation. No issues. History of thyroidectomy, subtotal Family History Uncle Family history of esophageal cancer Social History Preferred Language: Latvian Communication Ability: Effective Air Quality Engineer Required: No Beliefs That Will Affect Care: None Current Living Situation: Spouse and Family Feels Safe at Home: Yes Smoking Status: Never smoker Second Hand Exposure: No ; Hx Alcohol Use: No Hx Substance Use: No Review of Systems Review of Systems: All systems reviewed & are unremarkable except as noted in HPI & below Constitutional: no fever, no chills and no sweats Respiratory: no cough and no dyspnea Cardiovascular: no chest pain, no dyspnea and no orthopnea Gastrointestinal: no abdominal pain, no nausea and no vomiting Musculoskeletal: as per Subjective / HPI Physical Exam Physical Exam: Ht: 5ft 8in Wt: 102kg BP: 128/82 Pulse: 80 Constitutional: WD/WN, vitals as above no acute distress Respiratory: normal respiratory effort, lungs clear to auscultation no respiratory distress, no labored breathing and does not use accessory muscles Cardiovascular: RRR, no murmur, no edema Gastrointestinal (Abdomen): normal bowel sounds, soft, nontender, no hepatosplenomegaly Musculoskeletal: Left Knee Physical Exam: Yolanda ambulates with a slight limp, she has no erythema, warmth, or atrophy noted, +1 effusion, greatest tenderness over the medial joint line and anterior knee joint. negative patellar apprehension , mild crepitation with motion, colt's negative, posterior drawer negative. positive mcmurrays medially, negative anterior drawer, knee stable with valgus/varus stress. no extensor lag. pain with active range of motion, AROM 0/3/110, Passive ROM 0/3/115. No pain with active/passive ROM of ankle. Lower Extremity Strength normal. Lower Extremity Neuro-vascular is normal Results & Data Laboratory Results Laboratory Results WBC 3.53 K/uL (4.8-10.8) L 03/21/19 09:46 RBC 4.10 M/uL (4.2-5.4) L 03/21/19 09:46 Hgb 12.1 g/dL (12.0-16.0) 03/21/19 09:46 Hct 37.8 % (37-47) 03/21/19 09:46 MCV 92.2 fL (80-100) 03/21/19 09:46 MCH 29.5 pg (25-34) 03/21/19 09:46 MCHC 32.0 g/dL (32-36) 03/21/19 09:46 RDW Std Deviation 46.5 fL (36.4-46.3) H 03/21/19 09:46 RDW Coeff of [place]uki 13.9 % (11.5-14.5) 03/21/19 09:46 Plt Count 197 K/uL (130-400) 03/21/19 09:46 MPV 9.8 fL (7.4-10.4) 03/21/19 09:46 Immature Gran % (Auto) 0.0 % 03/21/19 09:46 Neut % (Auto) 51.4 % 03/21/19 09:46 Lymph % (Auto) 34.8 % 03/21/19 09:46 [place] % (Auto) 9.6 % 03/21/19 09:46 Eos % (Auto) 2.8 % 03/21/19 09:46 Baso % (Auto) 1.4 % 03/21/19 09:46 Immature Gran # (Auto) 0.00 K/uL (0.00-0.02) 03/21/19 09:46 Neut # (Auto) 1.81 K/uL (1.4-6.5) 03/21/19 09:46 Lymph # (Auto) 1.23 K/uL (1.2-3.4) 03/21/19 09:46 [place] # (Auto) 0.34 K/uL (0.11-0.59) 03/21/19 09:46 Eos # (Auto) 0.10 K/uL (0-0.5) 03/21/19 09:46 Baso # (Auto) 0.05 K/uL (0-0.2) 03/21/19 09:46 PT 10.1 Seconds (9.0-12.0) 03/21/19 09:46 INR 1.0 (0.9-1.1) 03/21/19 09:46 Sodium 141 mmol/L (136-145) 03/21/19 09:46 Potassium 4.5 mmol/L (3.5-5.1) 03/21/19 09:46 Chloride 107 mmol/L (98-107) 03/21/19 09:46 Carbon Dioxide 29 mmol/L (21-32) 03/21/19 09:46 Anion Gap 5.0 (3-11) 03/21/19 09:46 BUN 17 mg/dl (7-18) 03/21/19 09:46 Creatinine 0.67 mg/dl (0.6-1.2) 03/21/19 09:46 Est GFR ( Amer) 110.7 03/21/19 09:46 Est GFR (Non-Af Amer) 95.5 03/21/19 09:46 BUN/Creatinine Ratio 26.0 (10-20) H 03/21/19 09:46 Glucose 80 mg/dl (70-99) 03/21/19 09:46 Calcium 9.0 mg/dl (8.5-10.1) 03/21/19 09:46 Urine Color Dark Yellow 03/21/19 09:53 Urine Appearance Clear (Clear) 03/21/19 09:53 Urine pH 5.0 (4.5-7.5) 03/21/19 09:53 Ur Specific [place] 1.030 (1.000-1.030) 03/21/19 09:53 Urine Protein Negative (Negative) 03/21/19 09:53 Urine Glucose (UA) Negative (Negative) 03/21/19 09:53 Urine Ketones Trace (Negative) H 03/21/19 09:53 Urine Blood Negative (Negative) 03/21/19 09:53 Urine Nitrite Negative (Negative) 03/21/19 09:53 Urine Bilirubin Negative (Negative) 03/21/19 09:53 Urine Urobilinogen Negative (Negative) 03/21/19 09:53 Ur Leukocyte Esterase Negative (Negative) 03/21/19 09:53 Blood Type O Positive 03/21/19 09:47 Antibody Screen NEGATIVE 03/21/19 09:47 Diagnostic Findings Left Knee X-rays confirm advanced degenerative changes to the left knee, greatest medial compartments and patellofemoral joint, showing joint space narrowing, osteophyte formation and subchondral sclerosis. no acute bony pathology noted. no loose bodies noted.
[~2019-04-12 07:39] MED LIST changes: +CEFAZOLIN 1000MG 1,000 MG/7.5 ML SYR IV SCH; -EPINEPHrine INJ 1 MG/ML AMP ONE; +LR 15ML/HR IV SCH; -ROPIVACAINE 0.5% 5 MG/ML 30 ML VIAL ONE
[2019-04-12] MEDS ORDERED: ePHEDrine sulfate 50 MG/ML SYR ONE (07:50)
[2019-04-12] MEDS ORDERED: MIDAZOLAM HCL 1 MG/ML 2ML VIAL ONE (07:50)
[2019-04-12] MEDS ORDERED: PROPOFOL IV EMULSION 10 MG/ML 20 ML VIAL IV ONE ×2 (07:50→11:05)
[2019-04-12] MEDS ORDERED: LIDOCAINE HCL 2% 2 ML VIAL/AMP(20MG/ML) INFIL ONE (07:50)
[2019-04-12] MEDS ORDERED: fentaNYL citrate 100 MCG/2 ML VIAL ONE (07:50)
--- NOTE | 2019-04-12 08:34 | History & Physical Bridge Note ---
Date of Service April 12, 2019 History & Physical Bridge Note I have examined the patient, reviewed the History & Physical and in the interval since the performance of the History & Physical I have noted the following changes of clinical significance: no changes noted
[2019-04-12] MEDS ORDERED: ePHEDrine sulfate 50 MG/ML AMP IV PRN (08:36)
[2019-04-12] MEDS ORDERED: ONDANSETRON INJ 2 MG/ML 2 ML VIAL IV PRN ×2 (08:36→13:40)
[2019-04-12] MEDS ORDERED: ATROPINE SULFATE 0.1 MG/ML 10ML SYR IV PRN (08:36)
[2019-04-12] MEDS ORDERED: fentaNYL citrate 100 MCG/2 ML VIAL IV PRN (08:36)
[2019-04-12] MEDS ORDERED: BACITRACIN INJ 50,000 UNIT VIAL ONE (09:20)
[2019-04-12] MEDS ORDERED: ORTHO JOINT ANESTHETIC ONE (09:20)
--- NOTE | 2019-04-12 11:24 | Operative Report ---
Post Operative Report Pre & Post Diagnosis Operation Date: 04/12/19 10:10 Pre-Op Diagnosis: LEFT KNEE OSTEOARTHRITIS Post-Op Diagnosis: LEFT KNEE OSTEOARTHRITIS I personally identified the patient: Yes Procedure Operation Date: 04/12/19 10:10 Actual Procedures p Left Total Knee Arthroplasty(Left) utilizing [facility] patient matched total knee arthroplasty size 6 femur 4 tibia 15 constrained poly-29 oval patella- Ricky Le DO Surgeon Ricky Le DO [employer] Anmol GREER Estimated Blood Loss 10 Findings Consistent with Post-Op Diagnosis Patient presents with severe valgus alignment of 15 degrees left knee with severe end-stage tricompartmental degenerative joint joint disease she has history of a plate in her proximal femur a resurfaced left proximal hip a fibular plate had skin graft involving her left lower leg with multiple other old lacerations from previous multiple trauma times surgery she had [id number] eburnated bone valgus alignment marginal osteophytes subchondral cystic changes and sclerosis of bone Specimens Bone cartilage Drains Medium bore Hemovac Complications none Disposition Accompanied Patient To Recovery: No Disposition: Recovery Room Indications Patient presents as a 58-year-old white female with severe end-stage DJD of the left knee valgus alignment she is recently undergone successful right total knee arthroplasty she presents today for left total knee arthroplasty above intraoperative findings were noted patient is failed attempted conservative management including injections Visco supplements bracing corticosteroid injections relative rest and activity modification with the above intraoperative findings noted to left total knee was performed Description of Procedure Patient was properly identifiedAfter proper prepping and draping of the left lower extremity anterior midline incision was made over the region of the exte nsor extensor mechanism after meticulous hemostasis was obtained and maintained in subcutaneous tissues a medial parapatellar incision was made The patella was subluxed lateralward the medial lateral gutter were cleaned from any hypertrophic synovitis and scar tissue of the distal femoral block was placed and the distal femoral osteotomy cut was made subsequently the chamfers anterior and posterior osteotomy cuts were made utilizing the 4-in-1 block the tibia was subsequently subluxed anteriorward medial and ateral meniscal remnants were excised in their entirety remnants of the anterior and posterior cruciate ligaments were excised in their entirety excellent exposure of the proximal tibia was obtained the tibial osteotomy guide was placed on the proximal tibial osteotomy cut was made once again the knee was irrigated with copious amounts of sterile saline solution the patella was subsequently everted lateralward thickened scar tissue around the patella was removed the patella was subsequently cut utilizing a freehand technique and was drilled prepared for final preparation and placement of patella socially flexion-extension gaps were checked and the equal and symmetric trials were placed to the appropriate femoral and tibial trials with poly-spacer being placed for equal flexion and extension gaps and full range of motion including extension to 0 and flexion to 140 the trial components after having been taken to recovery range of motion was subsequently removed meticulous hemostasis was obtained and maintained subsequently a knee block injection of joint cocktail including ropivacaine 0.5% 150 mg. Bupivacaine 0.5% epinephrine 1-200,030 mL's toradol 30 mg dexamethasone 4 mg ketamine 10 mg clonidine 100 micrograms normal saline solution 30 mg was infiltrated into the soft tissues of the posterior knee medial lateral gutters and periosteal synovium special attention was paid to protect neurovascular structures at all times subsequently trial components having been removed the knee was irrigated with sterile saline solution. debris was removed the proximal tibia was subsequently prepared and was made ready for the placement of the tibial component tibial component was also cemented and tamped into position the femoral component was subsequently placed and cemented in the position the patellar component was subsequently cemented in position because hemostasis once again obtained and maintained wound having been thoroughly irrigated with debridement and debridement lavage was performed as well as a medial parapatellar incision closed with #1 Vicryl in interrupted fashion subcutaneous was closed with #2 Vicryl skin was closed with skin clips. PA-C was necessary for prepping and drapping as well as wound closure of deep fascia Sub cutaneous tissue and skin and was necessary for the case. A sterile compressive dressing was placed patient was taken to recovery in stable condition of report dictated by Rey I attest to the content of the Intraoperative Record and any orders documented therein. Any exceptions are noted below. I attest to the content of the Intraoperative Record and any orders documented therein. Any exceptions are noted below.
--- NOTE | 2019-04-12 12:30 | XRay Report ---
LEFT KNEE 2 VIEWS History: Left total knee arthroplasty. Degenerative arthritis. Postop. FINDINGS: The patient is status post a left total knee arthroplasty. The hardware is intact. No fract ure or dislocation. Skin barak and surgical drains are in place. IMPRESSION: Left total knee arthroplasty. No evidence for hardware complication. Electronically signed by: Ascencion Hoyos M.D. 04/12/2019 12:29 PM
[2019-04-12] MEDS ORDERED: NALOXONE HCL 0.4 MG/1 ML VIAL/CARP IV PRN (13:40)
[2019-04-12] MEDS ORDERED: METOCLOPRAMIDE HCL INJ 5 MG/ML 2 ML VIAL IV PRN (13:40)
[2019-04-12] MEDS ORDERED: HYDROmorphone INJ 1 MG/ML SYRINGE IV PRN (13:40)
[2019-04-12] MEDS ORDERED: MAGNESIUM HYDROXIDE SUSP 30 ML UDC PO PRN (13:40)
[2019-04-12] MEDS ORDERED: bisacodyL 10 MG SUPP PR PRN (13:40)
[2019-04-12] MEDS: SODIUM CHLORIDE 0.9% 1000ML 1,000 ML IV SCH ×2 (14:14→17:40)
[2019-04-12] MEDS: ACETAMINOPHEN 500 MG TAB PO SCH ×2 (14:17→22:06)
[2019-04-12] MEDS: KETOROLAC 30 MG/ML VIAL IV SCH ×2 (14:18→20:50)
--- NOTE | 2019-04-12 14:30 | Anesthesiology Progress Note ---
Date of Service April 12, 2019 Anesthesia Post Procedure Vital Signs Vital Signs: Temp Pulse Pulse Resp BP Pulse Ox 04/12/19 14:10 73 18 152/96 H 91 04/12/19 13:00 64 12 150/90 H 97 04/12/19 12:55 97.5 F L 65 12 145/93 H 95 04/12/19 12:45 73 11 L 145/94 H 98 04/12/19 12:35 67 10 L 149/92 H 96 04/12/19 12:25 70 16 128/85 100 04/12/19 12:15 69 15 131/81 100 04/12/19 12:06 98.2 F 74 18 118/84 97 04/12/19 08:21 98.2 F 70 20 98 Pain Intensity Left Knee: Pain Intensity: 0 Transfer of Care Handoff Completed per policy Notes Mental Status: alert / awake / arousable and participated in evaluation Patient Amnestic to Procedure: Yes Nausea / Vomiting: adequately controlled Pain: adequately controlled Airway Patency, RR, SpO2: stable & adequate BP & HR: stable & adequate Hydration State: stable & adequate Neuraxial Anesthesia: was administered and sensory block is resolving Anesthetic Complications: no major complications apparent and Pt Satisfied with anesthetic care
[2019-04-12] MEDS: CEFAZOLIN 2000MG 2,000 MG/15 ML SYR IV SCH (17:40)
[2019-04-12] MEDS: DOCUSATE SODIUM 100 MG CAP PO SCH (20:48)
[2019-04-12] MEDS: SENNA 8.6 MG TAB PO SCH (20:49)
[2019-04-12] MEDS: ATENOLOL 25 MG TABLET PO SCH (20:49)
[2019-04-12] MEDS: ASPIRIN 81 MG ECTAB PO SCH (20:49)
[2019-04-13] MEDS: CEFAZOLIN 2000MG 2,000 MG/15 ML SYR IV SCH (00:52)
[2019-04-13] MEDS: OXYCODONE HCL IR 5 MG TAB (IMMEDIATE RELEASE) PO PRN ×4 (01:23→23:46)
[2019-04-13] MEDS: KETOROLAC 30 MG/ML VIAL IV SCH ×3 (03:09→09:22)
[2019-04-13 05:13] LABS: Mean Corpuscular Hemoglobin 29.8 pg (25-34); Mean Corpuscular Hgb Conc 33.3 g/dL (32-36); Mean Corpuscular Volume 89.4 fL (80-100); Mean Platelet Volume 9.5 fL (7.4-10.4); Platelet Count 166 K/uL (130-400); RDW Coefficient of Variation 13.1 % (11.5-14.5); RDW Standard Deviation 42.7 fL (36.4-46.3); Red Blood Count 3.69 M/uL (4.2-5.4); White Blood Count 8.92 K/uL (4.8-10.8)
[2019-04-13] MEDS: ACETAMINOPHEN 500 MG TAB PO SCH ×3 (05:21→21:27)
[2019-04-13 05:40] LABS: BUN Creatinine Ratio 32.7 (10-20); Calcium 8.3 mg/dl (8.5-10.1); Creatinine Clr Calc Pharmacy 133.1 ml/min; Est GFR (African American) 116.8; Est GFR (Non-African American) 100.8
--- NOTE | 2019-04-13 07:06 | Orthopedic Progress Note ---
Date of Service April 13, 2019 Assessment & Plan (1) Status post total left knee replacement: POD #1 s/p Left TKA pt/ot dvt proph with ROMERO/SCD/ASA plan for d/c home with OPPT when stable, recheck after PT today Subjective POD #1 s/p Left TKA able to wiggle toes/ankle moveement. does c/o some numbness in her left foot, in the sole of her foot, has sensation but feels "tingling" Review of Systems Constitutional: no fever, no chills and no sweats Respiratory: no cough and no dyspnea Cardiovascular: no chest pain and no dyspnea Gastrointestinal: no abdominal pain, no nausea and no vomiting Physical Exam Physical Exam: Vital Signs Temp Pulse Pulse Resp BP Pulse Ox 04/13/19 03:18 36.7 C 69 14 154/85 H 95 04/12/19 23:33 36.5 C 75 15 145/83 H 97 04/12/19 20:47 84 150/94 H 04/12/19 19:09 36.5 C 75 18 142/86 H 97 04/12/19 16:50 36.5 C 76 18 163/95 H 94 04/12/19 14:37 36.7 C 75 16 138/80 93 04/12/19 14:10 73 18 152/96 H 91 04/12/19 13:00 64 12 150/90 H 97 04/12/19 12:55 36.4 C L 65 12 145/93 H 95 04/12/19 12:45 73 11 L 145/94 H 98 04/12/19 12:35 67 10 L 149/92 H 96 04/12/19 12:25 70 16 128/85 100 04/12/19 12:15 69 15 131/81 100 04/12/19 12:06 36.8 C 74 18 118/84 97 04/12/19 08:21 36.8 C 70 20 98 Intake and Output 04/12/19 04/13/19 04/13/19 22:59 06:59 14:59 Intake Total 816 / 3076 200 / 3076 Output Total 1025 / 1220 125 / 1220 Balance -209 / 1856 75 / 1856 Intake: IV 466 / 1286 Nss 1000ML 1,0 00 ml @ 100 mls/ 466 / 466 hr IV .Q10H SC H Rx#:[id number] Oral 350 / 790 200 / 790 Output: Urine 900 / 900 Drain Output 125 / 310 125 / 310 Left Knee Hemo vac 125 / 310 125 / 310 Constitutional: WD/WN, vitals as above well developed; no acute distress Musculoskeletal: Left Leg: NVDI, calf SNT, negative neris sign. DP palpable, able to wiggle toes/ankle movement without difficulty. dressing clean dry and intact. Results & Data Vital Signs (Past 12 Hours) Vital Signs Temp Pulse Pulse Resp BP Pulse Ox 04/13/19 03:18 36.7 C 69 14 154/85 H 95 04/12/19 23:33 36.5 C 75 15 145/83 H 97 04/12/19 20:47 84 150/94 H 04/12/19 19:09 36.5 C 75 18 142/86 H 97
[2019-04-13] MEDS: ASPIRIN 81 MG ECTAB PO SCH ×2 (08:42→21:27)
[2019-04-13] MEDS: MULTIVITAMIN TAB PO SCH (08:42)
[2019-04-13] MEDS: ATENOLOL 25 MG TABLET PO SCH ×2 (08:42→21:27)
[2019-04-13] MEDS: DOCUSATE SODIUM 100 MG CAP PO SCH ×2 (08:43→21:27)
[2019-04-13] MEDS: CeleBREX 200 MG CAP PO SCH ×2 (13:33→21:27)
[2019-04-13] MEDS ORDERED: ROSUVASTATIN CALCIUM 5 MG TAB PO SCH (21:00)
[2019-04-13] MEDS: SENNA 8.6 MG TAB PO SCH (21:27)
[2019-04-14] MEDS: ACETAMINOPHEN 500 MG TAB PO SCH (05:51)
[2019-04-14] MEDS: OXYCODONE HCL IR 5 MG TAB (IMMEDIATE RELEASE) PO PRN (06:36)
[2019-04-14] MEDS: MULTIVITAMIN TAB PO SCH (07:36)
[2019-04-14] MEDS: CeleBREX 200 MG CAP PO SCH (07:36)
[2019-04-14] MEDS: DOCUSATE SODIUM 100 MG CAP PO SCH (07:36)
[2019-04-14] MEDS: ASPIRIN 81 MG ECTAB PO SCH (07:37)
[2019-04-14] MEDS: ATENOLOL 25 MG TABLET PO SCH (07:37)
--- NOTE | 2019-04-14 08:21 | Orthopedic Progress Note ---
Date of Service April 14, 2019 Assessment & Plan (1) Status post total left knee replacement: POD #1 s/p Left TKA pt/ot dvt proph with ROMERO/SCD/ASA Patient is progressing well. plan for d/c home with OPPT today after PT Subjective Postop day 2 status post left total knee arthroplasty Patient is currently sitting up at the bedside in her chair. She has no complaints and she is in good spirits. She is hoping to go home today. Pain is controlled. Physical Exam Physical Exam: Pravena wound VAC is intact and dry. Functioning well. No overt drainage. Calves are soft and nontender. Neurovascular intact. Toes are mobile. She has no overt erythema around the dressing. She does have some swelling in the knee which is normal for the surgery. Results & Data Vital Signs (Past 12 Hours) Vital Signs Temp Pulse Resp BP BP Pulse Ox 04/14/19 06:18 36.6 C 72 16 149/90 H 99 04/13/19 23:16 36.9 C 76 15 153/88 H 161/96 H 97
--- NOTE | 2019-04-14 19:06 | Discharge Summary ---
Date of Service date of discharge: April 14, 2019 date of admission: 04-12-19 Admission HPI Per Admitting Provider Yolanda is a 58 year old female who complains of left knee pain, presents for pre- op evaluation prior to a left total knee replacement by dr Le at [facility]. She complains of pain, crepitus, decreased range of motion, instability and stiffness in the left knee. Yolanda states that the symptoms have been chronic and non-traumatic. she states that the symptoms occur constantly with intermittent worsening. Currently the patient states that the symptoms are moderate-severe. The pain is described as aching, sharp and throbbing. The symptoms occur continuously. The symptoms are aggravated by ascending stairs, daily activities, first steps while awake walking. Prior NSAIDs include Aleve, she has also taken Tylenol with not much relief. She has been treated with previous visc osupplementation injections in the past without much relief. she had prior Right TKA and has recovered well. Principal Diagnosis left knee osteoarthritis Discharge Exam Vital Signs Temp Pulse Resp BP BP Pulse Ox 04/14/19 06:18 36.6 C 72 16 149/90 H 99 04/13/19 23:16 36.9 C 76 15 153/88 H 161/96 H 97 Intake and Output 04/14/19 04/14/19 04/14/19 06:59 14:59 22:59 Intake Total 100 / 615 Balance 100 / 240 Intake: Oral 100 / 615 Other: # Unmeasured Voids 1 Weight 105 kg Patient Weight 04/15/19 06:59 Weight 105 kg Constitutional WD/WN, vitals as above no acute distress Musculoskeletal Left knee: NVDI, calf SNT, negative neris sign. DP palpable, able to wiggle toes/ankle movement without difficulty. prevena dressing clean dry and intact. expected post-operative bruising noted. Discharge Data Allergies Allergy/AdvReac Type Severity Reaction Status Date / Time morphine AdvReac Mild INEFFECTIVE, Verified 04/12/19 08:16 AGITATION Consultations 04/12/19 13:40 Consult Case Management - Discharge Planning Routine Procedures Performed Operation Date: 04/12/19 10:10 Actual Procedures p Left Total Knee Arthroplasty(Left) - Ricky Le DO Ordered Studies 04/12/19 05:00 US - OR guided needle placemen Routine Hospital Course (1) Status post total left knee replacement: POD #2 s/p Left TKA pt/ot dvt proph with ROMERO/SCD/ASA Patient is progressing well. plan for d/c home with OPPT today after PT Total Time Total Time Spent Total Time Spent (In Minutes): 20 Total Time Includes: Examination of the Patient, Discharge Planning and Medication Reconciliation Discharge Plan Discharge Items Patient Disposition: Home - Self-Care Reason For Visit: LEFT KNEE OSTEOARTHRITIS Discharge Diagnosis: left total knee replacement Activity: Per Instructions section Weightbearing: Left weightbearing Weightbearing Comment: as tolerated with walker Non-emergency contact: Surgeon Call non-emergency contact if: your pain is not controlled, your temperature is above 101.5, your wound has increased redness and your wound has increased drainage Follow-up/Referrals: Marcio Joel [Primary Care Provider] - Diet: Regular Addtl Attending Provider Instructions: ACTIVITY RECOMMENDATIONS: SELF CARE INSTRUCTIONS AFTER TOTAL KNEE REPLACEMENT A. You may need to continue a physical therapy program after discharge from the hospital. There are several options available to you. Your doctor will assist you in selecting the best one for you. 1. An out-patient facility 2 to 3 times a week for therapy or home therapy. 2. Continue working on all exercises taught to you in the hospital. Your goals should be to increase bending of your knee to 90 degrees and beyond and to fully straighten your knee. B. You may progress at your own pace from walking with a walker or crutches to a cane; then to no assistive devices. C. Make walking a part of your daily routine. Be up as much as comfortable with rest periods throughout the day. Rest with leg elevation is very important. Use the ice wrap frequently for the first 3-4 weeks. D. There are no restrictions on activities. You may ride in a car, shop, participate in field tax auditor and all social activities. E. Wear the long elastic stockings (ROMERO hose) 20 hours a day for 2 weeks after surgery. They can be removed several times a day for laundering and for a bath. F. You may shower, no tub baths until cleared by your doctor. SPECIAL CARE INSTRUCTIONS: VERY IMPORTANT TO READ AND REVIEW A. There are a few signs you need to watch for after you are home. Call [facility] if you notice any of the followin. Increased severe knee pain. Some pain is expected especially when you exercise. 2. Increased swelling in your leg or knee; pain or swelling of the calf muscle in either lower leg. 3. Any fluid drainage from the incision. 4. Shortness of breath or chest pain. B. Please call [facility] at if you have any concerns or questions about your operation or recovery. The doctor or his nurse will return your call promptly. C. You must take antibiotics before dental work, bladder, bowel or other surgery. Your doctor will provide you with a permanent care to carry describing this precaution. IMPORTANT: * REMEMBER TO TAKE ASPIRIN, 81 MG, TWICE DAILY FOR 4 WEEKS UNLESS OTHERWISE DIRECTED. THIS IS YOUR BLOOD THINNER. * HIGH RISK PATIENTS MAY BE PRESCRIBED A STRONGER BLOOD THINNER. THIS WILL BE PROVIDED AT DISCHARGE. * CALL IF INCREASED PAIN, REDNESS, DRAINAGE OR FEVER GREATER THAT 101. * WEAR ROMERO HOSE 20 HOURS PER DAY FOR 2 WEEKS. * Prevena- This is a large suction dressing covering your incision. This will help pull any excess drainage from the wound and allow your incision to heal properly. You may shower with this if you can keep the unit outside of the shower. If any bleeding or leakage is noted please call your doctor's office. This will remain on your incision for 7 days and then should be removed. This can be done yourself or by the home nursing staff if applicable. The entire unit is disposable once removed. Once removed, keep incision clean and dry. If redness or drainage is noted, please call your surgeon. IF INCISION IS LEAKING THROUGH DRESSING, CALL THE OFFICE . FOLLOW UP VISIT: If appointment is not already scheduled: Please call [facility] to make a follow-up appointment for 2 weeks after your surgery at . Pending Studies at Discharge: No Stand-Alone Forms: My [facility] [employer] Medications and DC Order Prescriptions: New aspirin [Ecotrin Low Strength] 81 mg Tablet,Delayed Release (Dr/Ec) 81 mg PO BID 30 Days Qty: 60 RF: 0 acetaminophen [Tylenol Extra Strength] 500 mg Tablet 1,000 mg PO Q8 14 Days Qty: 84 RF: 0 oxycodone 5 mg Tablet 5 mg PO Q6H PRN (Reason: pain) Qty: 30 RF: 0 cefadroxil 500 mg capsule 500 mg PO BID Qty: 28 RF: 1 celecoxib [Celebrex] 200 mg capsule 200 mg PO BID Qty: 60 RF: 1 Continued atenolol 50 mg Tablet 75 mg PO BID RF: 0 rosuvastatin 5 mg Tablet 5 mg PO 3XWK RF: 0 sennosides [Senokot] 8.6 mg Tablet 17.2 mg PO HS Qty: 30 RF: 0 Discontinued celecoxib [Celebrex] 200 mg Capsule 200 mg PO QAM RF: 0 aspirin [Aspirin Low Dose] 81 mg Tablet,Delayed Release (Dr/Ec) 81 mg PO DAILY RF: 0 acetaminophen [Tylenol Extra Strength] 500 mg Tablet 500 mg PO Q6 RF: 0 Discharge Orders: Discharge Order (Routine); Ordered 04/14/19 Ordered By: Panda Ron Admission Data Admit Date/Time: 04/12/19 12:09 Attending Provider: Ricky Le Admit Provider: Ricky Le Primary Care Provider: Marcio Joel Other Interventions: Discharge Summary Assessment (RN) Last Done: 04/14/19 09:55 DC Date/Time DO NOT enter until pt leaves facility: 04/14/19 10:27
== END 2019-04-14 10:27 | disposition home or self-care (01) | DRG 470 ==
LOC: ASU 07:39 → 3E 12:09
DX: E78.5 Hyperlipidemia, unspecified; Z96.651 Presence of right artificial knee joint; Z79.82 Long term (current) use of aspirin; Z88.5 Allergy status to narcotic agent; Z98.890 Other specified postprocedural states; M25.762 Osteophyte, left knee; Z79.899 Other long term (current) drug therapy; M17.12 Unilateral primary osteoarthritis, left knee; I10 Essential (primary) hypertension; Z96.7 Presence of other bone and tendon implants